=== PATIENT | female | born 1965 | race Caucasian/White ===

== ENCOUNTER 2020-05-19 11:58 | Emergency (ER) | payer OTHER, SELFPAY ==
[2020-05-19 12:04] VITALS: BP 133/78; PULSE 70; RESP 16; TEMP 36.6; O2SAT 98; BMI 26.5
--- NOTE | 2020-05-19 12:19 | DI.RAD.S_ITS ---
PROCEDURE: XR KNEE RT 3V INDICATIONS: fall TECHNIQUE: 3 views of the knee were acquired. COMPARISON: None. FINDINGS: Bones: No fractures or dislocations. No suspicious bony lesions. Soft tissues: No joint effusion. Small enthesophyte at the quadriceps insertion of the patella. IMPRESSION: No evidence of an acute osseous abnormality. Dictated by: Vikram Mayorga D.O. on 05/19/2020 at 11:39 Approved by: Vikram Mayorga D.O. on 05/19/2020 at 11:40
--- NOTE | 2020-05-19 12:26 | ED_ITS ---
HPI - Fall General Chief Complaint: Fall Stated Complaint: Fall, Hurt Rt Knee/Ankle Time Seen by Provider: 05/19/20 12:04 Source: patient and family Mode of arrival: Wheelchair Limitations: no limitations History of Present Illness HPI Narrative: Patient is a 54-year-old female here for evaluation of right leg injury. She states that just prior to arrival she was walking and stepped down into a deep hole. Since that time she has been unable to bear weight on her right lower extremity secondary to discomfort and she also feels like her right knee is unstable. She states that she feels like the inside of her knee is loose. She has no ankle pain. No hip pain. No other injuries from the event. No prior injuries to her knee. Review of Systems Constitutional Constitutional: Denies fever(s) Musculoskeletal Musculoskeletal: Denies tingling Comments: Right knee/leg pain Integumentary/Breasts Skin/Breast: Denies rash Neurologic Neurologic: Denies tingling Hematologic/Lymphatic On Anticoagulants: No Allergic/Immunologic Allergic/Immunologic: Denies urticaria Patient History Medical History Healthy adult Social History Smoking Status: Never smoker Smoking Status: Never smoker Substance Use Type: does not use Exam Initial Vital Signs Initial Vital Signs: Vital Signs Temperature 97.9 F 05/19/20 12:04 Pulse Rate 70 05/19/20 12:04 Respiratory Rate 16 05/19/20 12:04 Blood Pressure 133/78 05/19/20 12:04 Pulse Oximetry 98 05/19/20 12:04 Const General: cooperative, healthy appearing and comfortable [facility] Head: normal to inspection and normocephalic Resp Effort & Inspection: normal respiratory effort Cardio Pulses: dorsalis pedis present on the right Skin Lesions: no lesions Rashes: no rashes Neuro General: patient alert, patient awake and patient oriented x3 Cognition: normal cognition Sensory Exam: no sensory deficits noted Extrem Other: Patient can flex and extend and internally and externally rotate of the right hip without any discomfort. She can flex and extend the right knee with minimal discomfort however she does seem to have laxity with stressing of the MCL. The ACL PCL and LCL all seem to be intact. There is no effusion. She does have tenderness on the distal fibula on the right. She can flex and extend her ankle without discomfort. Psych Appearance: grossly normal and well kempt Procedures Orthopedic Splinting/Casting Injury #1: Side: right Lower Extremity Injury Location: knee Lower Extremity Immobilizer: knee immobilizer Other Orthopedic Equipment: crutches Post splinting neuro exam: no change Post splinting vascular exam: no change Placed by: Nursing Course Orders Ordered: ED Orders 05/19/20 12:19 XR knee RT 3V Stat 05/19/20 13:07 XR tibia fibula RT 2V Stat Vital Signs Vital signs: Vital Signs - 8 hr 05/19/20 12:04 Temperature 97.9 F Pulse Rate 70 Respiratory Rate 16 Blood Pressure 133/78 Pulse Oximetry 98 MDM - Fall Imaging Data Extremity x-ray #1: Radiologist's Impression: [address] [id number] ReportSigned Patient: Jen Galarza PATYR#: [id number]: [id number]:[id number]/Sex: 54 / FDate of Service: 05/19/20Loc: EDAccession Number: [id number] Procedure: XR knee RT 3V Ordering Provider: Roman Ibrahim D.O. PROCEDURE: XR KNEE RT 3V INDICATIONS: fall TECHNIQUE: 3 views of the knee were acquired. COMPARISON: None. FINDINGS: Bones: No fractures or dislocations. No suspicious bony lesions. Soft tissues: No joint effusion. Small enthesophyte at the quadriceps insertion of the patella. IMPRESSION: No evidence of an acute osseous abnormality. Dictated by: Vikram Mayorga D.O. on 05/19/2020 at 11:39 Approved by: Vikram Mayorga D.O. on 05/19/2020 at 11:40 Extremity x-ray #2: Radiologist's Impression: [address] [id number] ReportSigned Patient: Jen Galarza JMR#: [id number]: [id number]:[id number]/Sex: 54 / FDate of Service: 05/19/20Loc: EDAccession Number: [id number] Procedure: XR tibia fibula RT 2V Ordering Provider: Roman Ibrahim D.O. PROCEDURE: XR TIBIA FUBULA RT 2V INDICATIONS: right distal tib pain after fall TECHNIQUE: 2 views of the tibia and fibula were acquired. COMPARISON: [facility], CR, XR KNEE RT 3V, 05/19/2020, 12:18. FINDINGS: Bones: No fractures or dislocations. No suspicious bony lesions. Imaged portions of the knee and ankle demonstrate no acute osseous abnormality. Soft tissues: Calcaneal spur at the plantar fascial insertion. No focal soft tissue abnormality. IMPRESSION: No acute osseous abnormality. Dictated by: Vikram Mayorga D.O. on 05/19/2020 at 12:46 Approved by: Vikram Mayorga D.O. on 05/19/2020 at 12:48 MDM Narrative Medical decision making narrative: Patient is neurovascularly intact. The x-ray of her knee and her tib-fib showed no acute bony abnormalities. Based on her physical exam I do have a high suspicion that she may have a MCL disruption. Informed her that she needed to talk with her primary doctor about further workup to include physical therapy and/or MRI. Will send home with crutches and a knee immobilizer. She was informed that she can walk on her leg as tolerated because there were no fractures. We discussed the knee immobilizer and how she should be using this at home. Also informed her that she could use a knee brace if he felt that that was less cumbersome. She was given return precautions. She expressed understanding and agreement. Discharge Plan Departure Patient Disposition: Home Clinical Impression: Injury of knee, right Instructions: How to Use Crutches, How to Use an Elastic Bandage-Knee Sprain, How To Perform RICE (Rest, Ice, Compress, Elevate), How to Use a Knee Immobilizer Activity Restrictions/Additional Instructions: The x-rays today show no fractures however based on your exam I do have a suspicion that you have disrupted your MCL. Since there are no fractures on the x-rays you can weight bear as tolerated on your right leg. You can use the crutches as needed. You can use the knee immobilizer as needed for comfort and stability. You could also purchase an [id number] knee brace is this may be less cumbersome than the knee immobilizer. I do recommend that you keep your knee elevated and use ice as needed. Contact your primary provider to discuss further workup to include physical therapy or an MRI. Return to the emergency department for any new or worsening symptoms. You have can take Tylenol and/or ibuprofen for any discomfort.
--- NOTE | 2020-05-19 13:07 | DI.RAD.S_ITS ---
PROCEDURE: XR TIBIA FUBULA RT 2V INDICATIONS: right distal tib pain after fall TECHNIQUE: 2 views of the tibia and fibula were acquired. COMPARISON: [facility], CR, XR KNEE RT 3V, 05/19/2020, 12:18. FINDINGS: Bones: No fractures or dislocations. No suspicious bony lesions. Imaged portions of the knee and ankle demonstrate no acute osseous abnormality. Soft tissues: Calcaneal spur at the plantar fascial insertion. No focal soft tissue abnormality. IMPRESSION: No acute osseous abnormality. Dictated by: Vikram Mayorga D.O. on 05/19/2020 at 12:46 Approved by: Vikram Mayorga D.O. on 05/19/2020 at 12:48
== END 2020-05-19 14:08 | disposition home or self-care (01) ==
PROVIDERS: Emergency Provider Emergency Medicine
DX: S89.91XA Unspecified injury of right lower leg, initial encounter (principal); W19.XXXA Unspecified fall, initial encounter
CPT/HCPCS: 73562; 73590; 99283